=== PATIENT | male | born 1950 | race African-American/Black ===

== ENCOUNTER 2016-06-05 08:05 | Emergency (ER) | payer BC, OTHER ==
[2016-06-05 08:11] VITALS: TEMP 97.7; BMI 29.9
[2016-06-05] MEDS ORDERED: ASPIRIN 325 MG TABLET ONE (09:18)
--- NOTE | 2016-06-05 09:18 | PDOC ---
History of Present Illness - General Chief Complaint: Chest Pain Stated Complaint: CHEST PAIN Time Seen by Provider: 06/05/16 08:32 History Source: Patient - History of Present Illness Presenting Symptoms: Chest Pain Timing/Duration: reports: intermittent Chest Pain Radiation: reports: no radiation Prior Chest Pain/Cardiac Workup: reports: Stress Test (negative last week per pt ) Past History - Past Medical History Allergies/Adverse Reactions: Allergies Allergy/AdvReac Type Severity Reaction Status Date / Time No Known Allergies Allergy Verified 06/05/16 08:11 Home Medications: Ambulatory Orders Bimatoprost [Lumigan] 1 gtt OU DAILY 02/21/12 Brimonidine Tartrate/Timolol [Combigan Eye Drops] 1 gtt OU BID 02/21/12 Cephalexin [Keflex] 500 mg PO TID #20 capsule 10/16/15 Sulfamethoxazole/Trimethoprim [Bactrim Ds -] 1 tab PO BID #14 tablet 10/16/15 Tamsulosin HCl [Flomax] 0.4 mg PO DAILY 10/16/15 Acetazolamide [Diamox -] 0 mg PO BID 10/22/15 Ibuprofen [Motrin -] 400 mg PO TID #21 tablet 10/22/15 Anemia: No Asthma: No COPD: No CHF: No Diabetes: No Disorders: Yes (ENLARGED PROSTATE) HTN: No Hypercholesterolemia: Yes Other medical history: GLAUCOMA - Surgical History Cardiac Surgery: Yes (angiogram) - Psycho/Social/Smoking Cessation Hx Anxiety: No Suicidal Ideation: No Smoking Status: No Smoking History: Never smoked Have you smoked in the past 12 months: No Number of Cigarettes Smoked Daily: 0 If you are a former smoker, when did you quit?: 13 YEARS AGO Information on smoking cessation initiated: No Hx Alcohol Use: Yes (OCCASIONALLY) Drug/Substance Use Hx: No Substance Use Type: None Review of Systems - Review of Systems Constitutional: No: Fever Respiratory: No: Cough, Shortness of Breath Cardiac (ROS): Yes: Chest Pain. No: Lightheadedness, Palpitations *Physical Exam - Vital Signs Last Vital Signs Temp Pulse Resp BP Pulse Ox 97.7 F 62 16 99/58 98 06/05/16 08:07 06/05/16 12:02 06/05/16 12:02 06/05/16 12:02 06/05/16 12:02 - Physical Exam General Appearance: Yes: Appropriately Dressed. No: Apparent Distress HEENT: positive: Normal Voice Neck: positive: Supple Respiratory/Chest: positive: Lungs Clear, Normal Breath Sounds. negative: Respiratory Distress Cardiovascular: positive: Regular Rate, S1, S2 Gastrointestinal/Abdominal: positive: Soft. negative: Tender Rectal Exam: positive: normal exam Extremity: positive: Normal Inspection Integumentary: positive: Dry, Warm Neurologic: positive: Fully Oriented, Alert, Normal Mood/Affect Heart Score/ECG Review - History History: Slightly suspicious - Electrocardiogram EKG: Normal - Age Age: 45-65 - Risk Factors Risk Factors Heart Score: Yes Smoking History Based on the list above the patient has:: 1-2 risk factors - Troponin Troponin: </= normal limit - Score Heart Score - Total: 2 - ECG Intrepretation Comment:: 06/05/16 10:37 Sinus marita @59bpm, similar to prior ekg, no ST/T wave changes 06/05/16 10:38 ED Treatment Course - LABORATORY CBC & Chemistry Diagram: 06/05/16 09:39 06/05/16 09:39 - ADDITIONAL ORDERS Additional order review: Laboratory Results 06/05/16 06/05/16 06/05/16 11:50 11:50 11:50 Sodium Potassium Chloride Carbon Dioxide Anion Gap BUN Creatinine Creat Clearance w eGFR Random Glucose Calcium Total Bilirubin AST ALT Alkaline Phosphatase Creatine Kinase 189 Creatine Kinase Index CK-MB (CK-2) CK-MB (CK-2) Rel Index Cancelled Troponin I < 0.02 Cancelled Total Protein Albumin 06/05/16 06/05/16 09:39 09:39 Sodium 144 Potassium 3.7 Chloride 112 H Carbon Dioxide 22 Anion Gap 10 BUN 16 Creatinine 1.2 Creat Clearance w eGFR > 60 Random Glucose 115 H Calcium 8.1 L Total Bilirubin 1.0 D AST 22 D ALT 38 D Alkaline Phosphatase 79 Creatine Kinase 213 Creatine Kinase Index 0.7 CK-MB (CK-2) 1.572 CK-MB (CK-2) Rel Index Cancelled Troponin I < 0.02 Total Protein 7.1 Albumin 3.9 06/05/16 09:39 RBC 4.54 MCV 86.7 MCHC 33.6 RDW 12.6 MPV 7.1 L Neutrophils % 35.1 L D Lymphocytes % 50.5 H D Monocytes % 9.4 D Eosinophils % 4.4 D Basophils % 0.6 - RADIOLOGY Radiology Studies Ordered: Category Date Time Status CHEST X-RAY PORTABLE* [RAD] Stat Radiology 06/05/16 09:10 Completed - Medications Given in the ED: ED Medications Discontinued Medications Generic Name Dose Route Start Last Admin Trade Name Deidra PRN Reason Stop Dose Admin Aspirin 325 mg 06/05/16 09:10 06/05/16 09:19 Ecotrin - PO 06/05/16 09:11 325 mg ONCE ONE Administration Medical Decision Making - Medical Decision Making 06/05/16 09:11 65 yo male, legal blindness, former smoker, quit >10 years ago, TIA, presenting with chest pain. Patient reports non-radiating left-sided chest pain that started last night, described as sharp and lasted for 5-10 minutes with no worsening or alleviating factors. Had similar pain again this morning at 6am that again lasted for 5 minutes. No sob, diaphoresis, nausea, vomiting, palpitations, leg pain or swelling. States he had similar pain in the past, but never came in to the ED. Patient reports that he follows up with outside PMD and in fact had a negative exercise stress test 1 week ago. No obvious risk factors for DVT/PE See exam CP Not great story for ACS Reports negative stress test 1 week ago at outside facility, unsure of who his theatrical rigger is Well андрей and stable w/ unremarkable exam -ekg -asa -serial trops -cxr -anticipate discharge if w/u neg 06/05/16 09:31 06/05/16 09:31 06/05/16 10:27 06/05/16 10:40 06/05/16 12:50 EKG/trop neg. Pt remained asx in ED. Based on clinical findings and low heart score in the setting of recent self reported neg stress test, feel comfortable discharging pt to f/u with outside PMD and cards 06/05/16 12:50 *DC/Admit/Observation/Transfer Diagnosis at time of Disposition: Chest pain Qualifiers: Chest pain type: unspecified Qualified Code(s): R07.9 - Chest pain, unspecified - Discharge Dispostion Disposition: HOME Condition at time of disposition: Improved - Patient Instructions Printed Discharge Instructions: DI for Atypical Chest Pain Additional Instructions: Please continue to follow up with your theatrical rigger
[2016-06-05] MEDS: ASPIRIN 325 MG ENTERIC COATED TABLET (FP) PO ONE (09:19)
[2016-06-05 09:56] LABS: BASOPHIL 0.6 % (0-2.0); EOSINOPHIL 4.4 % (0-4.5); MCH 29.1 pg (25.7-33.7); MCHC 33.6 g/dl (32.0-35.9); MEAN CELL VOLUME 86.7 fl (80-96); MEAN PLT VOLUME 7.1 fl (7.5-11.1); NEUTROPHILS 35.1 % (42.8-82.8); PLATELET COUNT 189 K/MM3 (134-434); RDW 12.6 % (11.9-15.9); WHITE BLOOD COUNT 3.9 K/mm3 (4.0-10.0)
[2016-06-05 10:21] LABS: ALBUMIN 3.9 g/dl (3.4-5.0); ANION GAP 10 (8-16); CALCIUM 8.1 mg/dL (8.5-10.1); CO2 22 mmol/L (21-32); COCKROFT - GAULT 86.98; CREATININE 1.2 mg/dL (0.7-1.3); GLUCOSE,RANDOM 115 mg/dL (74-106); SGOT/AST 22 U/L (15-37); SGPT/ALT 38 U/L (12-78); TOT PROT 7.1 g/dl (6.4-8.2)
[2016-06-05 10:23] LABS: ALK PHOS 79 U/L (45-117); TROPONIN I < 0.02 ng/ml (0.00-0.05)
--- NOTE | 2016-06-05 10:41 | PDOC ---
*Physical Exam - Vital Signs Last Vital Signs Temp Pulse Resp BP Pulse Ox 97.7 F 71 16 121/88 98 06/05/16 08:07 06/05/16 08:07 06/05/16 08:07 06/05/16 08:07 06/05/16 08:07 Heart Score/ECG Review #1 ECG reviewed & interpreted by me at: 10:39 06/05/16 10:39 Twelve-lead EKG was performed and reviewed by me. There is normal sinus rhythm with a normal rate of 59 bpm. The axis is normal. The intervals are normal - pr: 204ms, QRS:90ms, QTc:409ms. There are no ST elevations or depressions. T wave upright ED Treatment Course - LABORATORY CBC & Chemistry Diagram: 06/05/16 09:39 06/05/16 09:39 - ADDITIONAL ORDERS Additional order review: Laboratory Results 06/05/16 06/05/16 09:39 09:39 Sodium 144 Potassium 3.7 Chloride 112 H Carbon Dioxide 22 Anion Gap 10 BUN 16 Creatinine 1.2 Creat Clearance w eGFR > 60 Random Glucose 115 H Calcium 8.1 L Total Bilirubin 1.0 D AST 22 D ALT 38 D Alkaline Phosphatase 79 Creatine Kinase 213 CK-MB (CK-2) Rel Index Cancelled Troponin I < 0.02 Total Protein 7.1 Albumin 3.9 06/05/16 09:39 RBC 4.54 MCV 86.7 MCHC 33.6 RDW 12.6 MPV 7.1 L Neutrophils % 35.1 L D Lymphocytes % 50.5 H D Monocytes % 9.4 D Eosinophils % 4.4 D Basophils % 0.6 - Medications Given in the ED: ED Medications Discontinued Medications Generic Name Dose Route Start Last Admin Trade Name Lesterq PRN Reason Stop Dose Admin Aspirin 325 mg 06/05/16 09:10 06/05/16 09:19 Ecotrin - PO 06/05/16 09:11 325 mg ONCE ONE Administration Medical Decision Making - Medical Decision Making 06/05/16 10:40 Pt seen by Midlevel Provider KRYSTIN Hastings Ancillary studies reviewed *DC/Admit/Observation/Transfer Diagnosis at time of Disposition: Chest pain - Discharge Dispostion Disposition: HOME Condition at time of disposition: Improved - Patient Instructions Printed Discharge Instructions: DI for Atypical Chest Pain Additional Instructions: Please continue to follow up with your cribber
--- NOTE | 2016-06-05 11:36 | EKG ---
Test Reason : Blood Pressure : / mmHG Vent. Rate : 059 BPM Atrial Rate : 059 BPM P-R Int : 204 ms QRS Dur : 090 ms QT Int : 414 ms P-R-T Axes : 049 047 036 degrees QTc Int : 409 ms SINUS BRADYCARDIA CANNOT RULE OUT ANTERIOR INFARCT , AGE UNDETERMINED ABNORMAL ECG WHEN COMPARED WITH ECG OF 28-JAN-2010 14:41, NO SIGNIFICANT CHANGE WAS FOUND Confirmed by MICKEY ALVARADO MD ([id number]) on 06/05/2016 11:35:29 AM Referred By: Confirmed By:MICKEY ALVARADO MD
[2016-06-05 12:03] VITALS: BP 99/58; PULSE 62
[2016-06-05 12:37] LABS: TROPONIN I < 0.02 ng/ml (0.00-0.05)
== END 2016-06-05 13:05 | disposition home or self-care (01) ==
LOC: JER 08:05
DX: R07.9 Chest pain, unspecified (principal); E78.00 Pure hypercholesterolemia, unspecified; Z86.73 Personal history of transient ischemic attack (TIA), and cerebral infarction without residual deficits; Z87.891 Personal history of nicotine dependence; N40.0 Benign prostatic hyperplasia without lower urinary tract symptoms; H54.8 Legal blindness, as defined in USA
CPT/HCPCS: 36415; 71010-TC; 80053; 82550; 82553; 84484; 85025; 93005; 93010; 99282-25

== ENCOUNTER 2016-07-23 18:10 | Emergency (ER) | payer BC ==
[2016-07-23 18:18] VITALS: BP 106/75; PULSE 64; TEMP 98.1; BMI 31.6
--- NOTE | 2016-07-23 18:47 | PDOC ---
History of Present Illness - General Chief Complaint: Rash Stated Complaint: RASH Time Seen by Provider: 07/23/16 18:17 Past History - Past Medical History Allergies/Adverse Reactions: Allergies Allergy/AdvReac Type Severity Reaction Status Date / Time No Known Allergies Allergy Verified 07/23/16 18:11 Home Medications: Ambulatory Orders Bimatoprost [Lumigan] 1 gtt OU DAILY 02/21/12 Brimonidine Tartrate/Timolol [Combigan 0.2%-0.5% Eye Drops] 1 gtt OU BID Tamsulosin HCl [Flomax -] 0.4 mg PO DAILY 10/16/15 Acetazolamide [Diamox -] 0 mg PO BID 10/22/15 Fexofenadine HCl [Martina Allergy] 180 mg PO DAILY #15 tablet 07/23/16 Hydroxyzine Pamoate [Vistaril -] 50 mg PO HS #15 capsule 07/23/16 Triamcinolone 0.1% Ointment [Aristocort 0.1% Ointment -] 1 applic TP BID PRN #1 tube 07/23/16 Anemia: No Asthma: No COPD: No CHF: No Diabetes: No Disorders: Yes (ENLARGED PROSTATE) HTN: No Hypercholesterolemia: Yes - Surgical History Cardiac Surgery: Yes (angiogram) - Psycho/Social/Smoking Cessation Hx Anxiety: No Suicidal Ideation: No Smoking Status: No Smoking History: Former smoker Have you smoked in the past 12 months: No Number of Cigarettes Smoked Daily: 0 If you are a former smoker, when did you quit?: 13 YEARS AGO Information on smoking cessation initiated: No Hx Alcohol Use: No Drug/Substance Use Hx: No Substance Use Type: None *Physical Exam - Vital Signs Last Vital Signs Temp Pulse Resp BP Pulse Ox 98.1 F 64 17 106/75 100 07/23/16 18:10 07/23/16 18:10 07/23/16 18:10 07/23/16 18:10 07/23/16 18:10 *DC/Admit/Observation/Transfer Diagnosis at time of Disposition: Dry skin dermatitis, Heat rash - Discharge Dispostion Disposition: HOME Condition at time of disposition: Stable - Prescriptions Prescriptions: Fexofenadine HCl [Martina Allergy] 180 mg PO DAILY #15 tablet Triamcinolone 0.1% Ointment [Aristocort 0.1% Ointment -] 1 applic TP BID PRN #1 tube PRN Reason: For Itching Hydroxyzine Pamoate [Vistaril -] 50 mg PO HS #15 capsule - Referrals Referrals: Zoe Gonzalez [Staff Physician] - - Patient Instructions Printed Discharge Instructions: DI for Atopic Dermatitis - Adult Additional Instructions: Keep this skin cool. No hot baths or showers. Immediately after showering, use large amounts of moisturizing lotion such as Eucerin, Lubriderm. or Curel. Applied steroid ointment as prescribed limited areas with the most bumps and scratches Take Martina during the day for itching, Vistaril at night before going to bed. The most important thing is to keep the skin moist using large amounts of skin moisturizers multiple times during the day Consider seeing a plating tank operator apprentice if the condition worsens.
== END 2016-07-23 19:20 | disposition home or self-care (01) ==
LOC: FER 18:10
DX: L85.3 Xerosis cutis (principal); L74.0 Miliaria rubra; Z87.891 Personal history of nicotine dependence; E78.00 Pure hypercholesterolemia, unspecified; N40.0 Benign prostatic hyperplasia without lower urinary tract symptoms
CPT/HCPCS: 99281-25

== ENCOUNTER 2017-08-29 16:12 | Emergency (ER) | payer BC ==
[2017-08-29 16:18] VITALS: BP 155/100; PULSE 101; TEMP 97; BMI 29.5
[2017-08-29] MEDS ORDERED: IBUPROFEN 600 MG TABLET (FP) PO ONE ×2 (16:40→17:04)
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
== END 2017-08-29 18:50 | disposition home or self-care (01) ==
LOC: JERFT 16:12
DX: S00.83XA Contusion of other part of head, initial encounter (principal); S20.212A Contusion of left front wall of thorax, initial encounter; S80.01XA Contusion of right knee, initial encounter; S79.922A Unspecified injury of left thigh, initial encounter; H54.8 Legal blindness, as defined in USA; N40.0 Benign prostatic hyperplasia without lower urinary tract symptoms; Y04.2XXA Assault by strike against or bumped into by another person, initial encounter; Y93.89 Activity, other specified; Y92.038 Other place in apartment as the place of occurrence of the external cause; Y99.8 Other external cause status; Y07.499 Other family member, perpetrator of maltreatment and neglect
CPT/HCPCS: 70450-TC; 71250-TC; 73562-TC-RT-FY; 99281-25

== ENCOUNTER 2021-07-03 15:36 | Observation (INO) | payer OTHER, BC ==
[2021-07-03] MEDS ORDERED: ACETAMINOPHEN 1000 MG/100 ML BAG IVPB ONE (17:06)
[2021-07-03] MEDS ORDERED: ACETAMINOPHEN INJECTION 100 ML IVPB ONE (17:56)
[2021-07-03 18:42] LABS: BASO % 0.5 % (0-2.0); EOS % 3.8 % (0-4.5); HEMATOCRIT 38.1 % (35.4-49); HEMOGLOBIN 12.8 GM/dL (11.7-16.9); LYMPH % 43.2 % (8-40); MCH 29.2 pg (25.7-33.7); MCHC 33.6 g/dl (32.0-35.9); MEAN CELL VOLUME 86.8 fl (80-96); MEAN PLT VOLUME 6.7 fl (7.5-11.1); MONO % 7.1 % (3.8-10.2); NEUT % 45.4 % (42.8-82.8); PLATELET COUNT 182 10^3/uL (134-434); RBC 4.39 M/mm3 (4.00-5.60); RDW 12.3 % (11.9-15.9); WHITE BLOOD COUNT 3.6 K/mm3 (4.0-10.0)
[2021-07-03 18:59] LABS: ALBUMIN 3.8 g/dl (3.4-5.0); BLOOD UREA NITROGEN 11.4 mg/dL (7-18); CALCIUM 8.7 mg/dL (8.5-10.1)
[2021-07-03 19:02] LABS: CREATININE 1.2 mg/dL (0.55-1.3)
[2021-07-03 19:04] LABS: BILIRUBIN,TOTAL 0.6 mg/dL (0.2-1); TOT PROT 6.9 g/dl (6.4-8.2)
[2021-07-04] MEDS ORDERED: ACETAMINOPHEN 325 MG TABLET (FP) PO PRN (00:39)
[2021-07-04] MEDS: TIMOLOL 0.5% OPHTHALMIC SOL 5 ML BOTTLE OU SCH ×3 (04:49→22:21)
[2021-07-04] MEDS: BRIMONIDINE TARTRATE 0.2% OPHTHALMIC 5 ML BOTTLE OU SCH ×3 (04:49→22:21)
[2021-07-04 05:11] LABS: EPI CELLS 2 /uL (0-25.1); HYALINE CASTS 0 /uL (0-3.1); PH,URINE 7.5 (5.0-8.0); URINE APPEARANCE CLOUDY; URINE BACTERIA 4 /uL (0-1359); URINE BILIRUBIN NEGATIVE (NEGATIVE); URINE COLOR YELLOW; URINE GLUCOSE (UA) 1+ (NEGATIVE); URINE KETONE NEGATIVE (NEGATIVE); URINE LEUK ESTERASE TRACE (NEGATIVE); URINE NITRITE NEGATIVE (NEGATIVE); URINE PROTEIN NEGATIVE (NEGATIVE); URINE RBC 10 /uL (0-23.9); URINE WBC 32 /uL (0-25.8)
[2021-07-04 06:59] LABS: BASO % 0.8 % (0-2.0); EOS % 5.1 % (0-4.5); HEMATOCRIT 36.5 % (35.4-49); HEMOGLOBIN 12.4 GM/dL (11.7-16.9); LYMPH % 39.9 % (8-40); MCH 29.4 pg (25.7-33.7); MEAN CELL VOLUME 86.4 fl (80-96); MEAN PLT VOLUME 6.8 fl (7.5-11.1); MONO % 9.2 % (3.8-10.2); PLATELET COUNT 169 10^3/uL (134-434); RBC 4.22 M/mm3 (4.00-5.60); RDW 12.4 % (11.9-15.9); WHITE BLOOD COUNT 3.5 K/mm3 (4.0-10.0)
[2021-07-04 07:20] LABS: CALCIUM 8.2 mg/dL (8.5-10.1)
[2021-07-04 07:21] LABS: ALBUMIN 3.5 g/dl (3.4-5.0)
[2021-07-04 07:24] LABS: CREATININE 1.3 mg/dL (0.55-1.3)
[2021-07-04 07:25] LABS: BILIRUBIN,TOTAL 0.6 mg/dL (0.2-1); TOT PROT 6.6 g/dl (6.4-8.2)
[2021-07-04] MEDS ORDERED: TAMSULOSIN HCL 0.4 MG CAP ONE (08:43)
[2021-07-04] MEDS: TAMSULOSIN HCL 0.4 MG CAP PO SCH (08:44)
[2021-07-04] MEDS ORDERED: MULTIVITAMINS (DAILY MVI) TABLET (FP) ONE (09:49)
[2021-07-04] MEDS ORDERED: ASPIRIN 81 MG CHEWABLE TABLETS ONE (09:52)
[2021-07-04] MEDS: ASPIRIN 81 MG CHEWABLE TABLETS PO SCH (09:55)
[2021-07-04 16:38] VITALS: BMI 27.8
[2021-07-05] MEDS: TAMSULOSIN HCL 0.4 MG CAP PO SCH (08:47)
[2021-07-05] MEDS: TIMOLOL 0.5% OPHTHALMIC SOL 5 ML BOTTLE OU SCH (09:25)
[2021-07-05] MEDS: BRIMONIDINE TARTRATE 0.2% OPHTHALMIC 5 ML BOTTLE OU SCH (09:25)
[2021-07-05] MEDS: ASPIRIN 81 MG CHEWABLE TABLETS PO SCH (09:26)
[2021-07-05] MEDS ORDERED: ENOXAPARIN NA (PORCINE) 40 MG/0.4 ML DISP.SYRIN SQ SCH (10:00)
[2021-07-05 14:28] VITALS: BP 141/83; PULSE 83; TEMP 94.8
== END 2021-07-05 17:12 | disposition home or self-care (01) ==
LOC: JER 15:36 → JERBED 21:49 → J4S 07-04 15:46
PROVIDERS: ADMIT Internal Medicine; ATTEND Internal Medicine
PROC: 3E033NZ Introduction of Analgesics, Hypnotics, Sedatives into Peripheral Vein, Percutaneous Approach (ICD-10-PCS; principal; 2021-07-03)
PROC: 3E023GC Introduction of Other Therapeutic Substance into Muscle, Percutaneous Approach (ICD-10-PCS; 2021-07-03)
DX: I25.10 Atherosclerotic heart disease of native coronary artery without angina pectoris (principal); I11.0 Hypertensive heart disease with heart failure; N40.0 Benign prostatic hyperplasia without lower urinary tract symptoms; H40.9 Unspecified glaucoma; E78.5 Hyperlipidemia, unspecified; Z87.891 Personal history of nicotine dependence; R07.89 Other chest pain; Q24.5 Malformation of coronary vessels; Z20.822 Contact with and (suspected) exposure to COVID-19
CPT/HCPCS: 36415; 71045-TC-FY; 71275-TC; 80053; 80061; 81003; 83036; 84443; 84484; 85025; 85379; 93005; 93010; 96372; 96374; 99285-25; C9803-CS; G0378; U0003; U0005

== ENCOUNTER 2022-04-27 11:18 | Emergency (ER) | payer OTHER, BC ==
[2022-04-27 11:21] VITALS: BP 146/98; PULSE 82; RESP 18; TEMP 97.9; BMI 29.0
== END 2022-04-27 14:24 | disposition home or self-care (01) ==
LOC: JER 11:18 → JERFT 11:18
PROC: 0H9FXZZ Drainage of Right Hand Skin, External Approach (ICD-10-PCS; principal; 2022-04-27)
DX: L03.011 Cellulitis of right finger (principal)
CPT/HCPCS: 99283-25

== ENCOUNTER 2023-01-24 13:47 | Observation (INO) | payer OTHER, BC ==
[2023-01-24 15:03] LABS: BASO % 0.5 % (0-2.0); EOS % 4.2 % (0-4.5); HEMATOCRIT 39.5 % (35.4-49); LYMPH % 22.8 % (8-40); MCH 28.8 pg (25.7-33.7); MEAN CELL VOLUME 87.4 fl (80-96); MEAN PLT VOLUME 6.8 fl (7.5-11.1); MONO % 9.1 % (3.8-10.2); NEUT % 63.4 % (42.8-82.8); PLATELET COUNT 228 10^3/uL (134-434); RBC 4.52 M/mm3 (4.00-5.60); RDW 12.3 % (11.9-15.9); WHITE BLOOD COUNT 5.3 K/mm3 (4.0-10.0)
[2023-01-24 15:09] LABS: INR 1.03 (0.83-1.09)
[2023-01-24 15:11] LABS: ACTIVATED PTT 25.4 SECONDS (25.2-36.5)
[2023-01-24 15:14] LABS: POTASSIUM 4.1 mmol/L (3.5-5.1)
[2023-01-24 15:16] LABS: CALCIUM 8.9 mg/dL (8.5-10.1)
[2023-01-24 15:17] LABS: ALBUMIN 3.9 g/dl (3.4-5.0); BLOOD UREA NITROGEN 13.8 mg/dL (7-18); MAGNESIUM 1.9 mg/dL (1.8-2.4)
[2023-01-24 15:20] LABS: CREATININE 1.6 mg/dL (0.55-1.3)
[2023-01-24 15:21] LABS: TOT PROT 7.1 g/dl (6.4-8.2)
[2023-01-24] MEDS ORDERED: SODIUM CHLORIDE 1,000 ML IV STA (15:34)
[2023-01-24] MEDS ORDERED: HEPARIN NA (PORCINE) 5,000 UNITS/ML 1ML VIAL ONE (21:51)
[2023-01-24] MEDS ORDERED: ACETAMINOPHEN 325 MG TABLET (FP) ONE (21:51)
[2023-01-24] MEDS: ACETAMINOPHEN 325 MG TABLET (FP) PO PRN (22:01)
[2023-01-24] MEDS: HEPARIN NA (PORCINE) 5,000 UNITS/ML 1ML VIAL SQ SCH (22:01)
[2023-01-25] MEDS: INSULIN SLIDING SCALE (NOVOLOG) 1 VIAL SQ SCH ×5 (00:11→21:49)
[2023-01-25 01:37] VITALS: BMI 29.7
[2023-01-25] MEDS: HEPARIN NA (PORCINE) 5,000 UNITS/ML 1ML VIAL SQ SCH ×3 (06:02→21:44)
[2023-01-25 07:20] LABS: HEMATOCRIT 35.8 % (35.4-49); MCH 29.4 pg (25.7-33.7); MCHC 33.6 g/dl (32.0-35.9); MEAN CELL VOLUME 87.4 fl (80-96); MEAN PLT VOLUME 7.1 fl (7.5-11.1); PLATELET COUNT 207 10^3/uL (134-434); RDW 12.2 % (11.9-15.9); WHITE BLOOD COUNT 4.1 K/mm3 (4.0-10.0)
[2023-01-25 07:36] LABS: POTASSIUM 3.9 mmol/L (3.5-5.1)
[2023-01-25 07:40] LABS: CALCIUM 8.3 mg/dL (8.5-10.1)
[2023-01-25 07:41] LABS: ALBUMIN 3.6 g/dl (3.4-5.0); BLOOD UREA NITROGEN 10.9 mg/dL (7-18); MAGNESIUM 1.9 mg/dL (1.8-2.4)
[2023-01-25 07:44] LABS: CREATININE 1.1 mg/dL (0.55-1.3); PHOSPHOROUS 3.2 mg/dL (2.5-4.9)
[2023-01-25 07:45] LABS: TOT PROT 6.7 g/dl (6.4-8.2)
[2023-01-25 07:46] LABS: BILIRUBIN,TOTAL 0.9 mg/dL (0.2-1)
[2023-01-25 09:06] VITALS: RESP 18
[2023-01-25] MEDS: ACETAMINOPHEN 325 MG TABLET (FP) PO PRN (13:19)
[2023-01-25] MEDS ORDERED: metFORMIN HCL 500 MG TABLET (FP) PO SCH (13:30)
[2023-01-25] MEDS ORDERED: IBUPROFEN 400 MG TABLET (FP) PO PRN (13:33)
[2023-01-25] MEDS: FINASTERIDE 5 MG TABLET (FP) PO SCH (15:29)
[2023-01-25] MEDS ORDERED: TIMOLOL 0.5% OPHTHALMIC SOL 5 ML BOTTLE OU SCH (16:00)
[2023-01-25] MEDS: BRIMONIDINE TARTRATE 0.2% OPHTHALMIC 5 ML BOTTLE OU SCH ×2 (16:39→21:52)
[2023-01-25] MEDS: TIMOLOL 0.5% OPHTHALMIC SOL 5 ML BOTTLE OU SCH ×2 (16:40→21:52)
[2023-01-25] MEDS: DORZOLAMIDE 2% HCL OPHTHALMIC SOLUTION 10 ML BOTTLE OU SCH ×2 (16:41→21:53)
[2023-01-25] MEDS ORDERED: ATORVASTATIN CA 10 MG TABLET (FP) PO SCH (22:00)
[2023-01-26] MEDS: BRIMONIDINE TARTRATE 0.2% OPHTHALMIC 5 ML BOTTLE OU SCH ×2 (06:15→15:21)
[2023-01-26] MEDS: TIMOLOL 0.5% OPHTHALMIC SOL 5 ML BOTTLE OU SCH ×2 (06:15→15:21)
[2023-01-26] MEDS: DORZOLAMIDE 2% HCL OPHTHALMIC SOLUTION 10 ML BOTTLE OU SCH ×2 (06:15→15:21)
[2023-01-26] MEDS: HEPARIN NA (PORCINE) 5,000 UNITS/ML 1ML VIAL SQ SCH ×2 (06:42→15:22)
[2023-01-26] MEDS: INSULIN SLIDING SCALE (NOVOLOG) 1 VIAL SQ SCH ×2 (07:09→12:17)
[2023-01-26 08:31] LABS: CHOLESTEROL 102 mg/dL (50-200); LDL CHOLESTEROL (ONLY SJRH) 43 mg/dL (5-100)
[2023-01-26 08:33] LABS: HDL CHOLESTEROL 49 mg/dL (40-60)
[2023-01-26] MEDS: FINASTERIDE 5 MG TABLET (FP) PO SCH (09:29)
[2023-01-26] MEDS ORDERED: ASPIRIN 81 MG CHEWABLE TABLETS PO SCH (10:00)
[2023-01-26] MEDS ORDERED: ENALAPRIL MALEATE 10 MG TABLET PO SCH (10:00)
[2023-01-26] MEDS ORDERED: DOXAZOSIN MESYLATE 4 MG TABLET PO SCH (10:00)
[2023-01-26] MEDS ORDERED: TETRAHYDROZOLINE HCL EYE DROPS OD PRN (10:06)
[2023-01-26 13:54] VITALS: BP 112/73; PULSE 78; TEMP 98.7
== END 2023-01-26 17:09 | disposition home or self-care (01) ==
LOC: JER 13:47 → JERBED 18:42 → J4W 23:53
PROVIDERS: ADMIT Internal Medicine; ATTEND Internal Medicine
PROC: 3E0337Z Introduction of Electrolytic and Water Balance Substance into Peripheral Vein, Percutaneous Approach (ICD-10-PCS; principal; 2023-01-24)
DX: I51.89 Other ill-defined heart diseases (principal); Q24.5 Malformation of coronary vessels; I34.0 Nonrheumatic mitral (valve) insufficiency; I25.10 Atherosclerotic heart disease of native coronary artery without angina pectoris; R07.9 Chest pain, unspecified; R79.9 Abnormal finding of blood chemistry, unspecified; R00.2 Palpitations; H54.8 Legal blindness, as defined in USA; Z98.49 Cataract extraction status, unspecified eye; H40.9 Unspecified glaucoma; E78.5 Hyperlipidemia, unspecified; I50.30 Unspecified diastolic (congestive) heart failure; N40.0 Benign prostatic hyperplasia without lower urinary tract symptoms; R61 Generalized hyperhidrosis; R42 Dizziness and giddiness; Z87.891 Personal history of nicotine dependence
CPT/HCPCS: 0241U-QW; 36415; 71046-TC-FY; 76775-TC; 80053; 80061; 82550; 82962; 83036; 83735; 84100; 84436; 84443; 84484; 85025; 85027; 85610; 85730; 93005; 93010; 93306-TC; 93880-TC; 96360; 99285-25; G0378; J1644